=== PATIENT | male | born 1955 | race Caucasian/White ===

== ENCOUNTER 2019-05-22 23:38 | Emergency (ER) | payer OTHER ==
--- OUTSIDE RECORDS SUMMARY | 2019-05-22 23:41 | XMS REPORT | Continuity of Care Document ---
:1955 Author Organization [facility] Care Team Providers Name Role Phone [facility] Unavailable Unavailable Problems Problem Status Onset Classification Date Comments Source Date Reported Quadriplegia, 03/20/2019 [facility] unspecified 8 1 YEAR FOLLOW Active [facility] UP- TETRAPLEGIA 8 YEARLY FOLLOW Active [facility] UP 7 SCI FU Active [facility] 6 F/U Active [facility] 5 EAVL REFER BY Active [facility] DR. 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, not elsewhere classified Orthostatic 03/20/2019 [facility] hypotension Colostomy Active Problem 03/20/2019 [facility] Neurogenic Resolved Problem 03/20/2019 [facility] bowel 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 imipramine 10 See Active [facility] mg oral Instructions, 017 tablet TAKE 1 TABLET BY MOUTH TWICE DAILY, # 60 tab, 2 Refill(s) Ibu 800 mg See Active [facility] oral tablet Instructions, 017 TAKE 1 TABLET BY MOUTH TWICE DAILY NEEDED, # 60 tab, 2 Refill(s), Pharmacy: [facility] midodrine 2.5 See No Longer [facility] mg oral Instructions, # Active 017 tablet 360 tab, Refill(s) 1, TAKE 2 TABLETS BY MOUTH TWICE DAILY, Pharmacy: [facility] oxybutynin 15 See No Longer [facility] mg oral Instructions, # Active 017 tablet, 180 tab, extended Refill(s) 1, release TAKE 1 TABLET BY MOUTH TWICE DAILY, Pharmacy: [facility] Ibu 800 mg See No Longer [facility] oral tablet Instructions, # Active 017 60 tab, Refill(s) 2, TAKE 1 TABLET BY MOUTH TWICE DAILY NEEDED, Pharmacy: [facility] imipramine 10 See No Longer [facility] mg oral Instructions, # Active 017 tablet 60 tab, Refill(s) 2, TAKE 1 TABLET BY MOUTH TWICE DAILY, Pharmacy: [facility] Ibuprofen 800 See Active [facility] MG Oral Instructions, 015 Tablet [Ibu] PRN Pain Score 4-6, Take 1 tablet by mouth twice a day, # 90 tab, 3 Refill(s), [facility] Inst[facility]: Take 1 tablet by mouth twice a day midodrine 2.5 5 mg=2 tab, PO, Active [facility] mg oral BID, # 360 tab, 015 tablet 3 Refill(s), Pharmacy: [facility] imipramine 10 See Active [facility] mg oral Instructions, 015 tablet Take 1 tablet by mouth twice a day, # 180 tab, 3 Refill(s), [facility] Instructions: Take 1 tablet by mouth twice a day oxybutynin 15 15 mg=1 tab, PO, Active [facility] mg oral BID, # 180 tab, 015 tablet, 3 Refill(s), extended Pharmacy: release [facility] oxybutynin 15 15 mg=1 tab, PO, Inactive [facility] mg oral BID, 0 Refill(s) 015 tablet, extended release 24 HR 15 mg=1 tab, PO, Active [facility] Oxybutynin Daily, # 90 tab, 014 chloride 15 0 Refill(s) MG Extended Release Tablet [Ditropan] imipramine 10 =10 mg, PO, BID, Active [facility] mg oral 0 Refill(s) 014 tablet ibuprofen 800 800 mg=1 tab, No Longer [facility] mg oral PO, BID, # 60 Active 014 tablet tab, 11 Refill(s), Pharmacy: [facility] midodrine 2.5 5 mg=2 tab, PO, No Longer [facility] mg oral BID, # 120 tab, Active 014 tablet 10 Refill(s), Pharmacy: [facility] Omnipaque 300 100 mL, Route: MISC Active Bertini [facility] MISC, Drug Form: 013 SOLN, ONCE, Start date: 06/09/13 16:48:00, Stop date: 06/09/13 16:48:00 Milk of Bedtime, Active [facility] Magnesia Substitution 013 Allowed, Maintenance Allergies, Adverse Reactions, Alerts Substance Category Reaction Severity Reaction Status Date Comments Source type Reported No Known Assertion Drug [facility] Medication allergy Allergies Immunizations No Data Provided for This Section Results Order Name Results Value Reference Date Interpretation Comments Source Range CHEM PANEL eGFR 93 06/13/ <sup>1</sup>Re [facility] 2013 sult Comment: The eGFR is calculated using the CKD-EPI formula. In most young, healthy individuals the eGFR will be >90 mL/min/1.73m2. The eGFR declines with age. An eGFR of 60-89 may be normal in some populations, particularly the elderly, for whom the CKD-EPI formula has not been extensively validated. Use of the eGFR is not recommended in the following populations:&l t;br/>
Ind ividuals with unstable creatinine concentrations , including patients and those with serious co-morbid conditions.

Patient s with extremes in muscle mass or diet.

The data above are obtained from the National Kidney Disease Education Program (NKDEP) which additionally recommends that when the eGFR is used in patients with extremes of body mass index for purposes of drug dosing, the eGFR should be multiplied by the estimated BMI. CHEM PANEL Creatinine 0.9 0.5 - 1.4 06/13/ [facility] Lvl 2014 SPECIAL PSA 1.98 0.00 - 4.00 06/13/ <sup>2</sup>In [facility] CHEMISTRY 2014 terpretive Data: 0-4 ng/ml is clinically accepted reference range from the
[employer] in 1997 for Total PSA.

A PSA value in the range of 0.1 to 0.6 ng/mL is indeterminate< br/>if being used as an indicator of recurrent or residual disease. Pathology Reports No Data Provided for This Section Diagnostic Reports Report Value Date Source Retroperitoneal Complete US EXAM: US RENAL 05/05/2013 [facility] DATE: 05/05/2013 at 1047 hours. INDICATION: Neurogenic bladder. ADDITIONAL INFORMATION: Last catheterization at 0915 hours. COMPARISON: CT dated 08/14/2010 at 0801 hours. TECHNIQUE: Multiplanar grayscale and color Doppler ultrasound images of the kidneys and urinary bladder were obtained. FINDINGS: Kidneys are normal in shape and position without masses, hydronephrosis or cortical thinning. Right kidney is 10.2 x 4.7 x 4.6 cm and left is 11.7 x 5.8 x 5.7 cm. Renal echogenicity is normal. No avril l calculi or echogenic focus noted. Left-sided renal cysts are again identified. The largest ones measure 2.9 x 2.5 x 2.4 cm in the superior pole and 2.0 x 1.8 x 1.8 cm in the mid left kidney anteriorly . Both appears simple. Other smaller lesions evident on prior CT are not seen. Urinary bladder wall thickening is in keeping with history of neurogenic bladder and incomplete distension. No bladder calculi are identified. IMPRESSION: 1. Simple left renal cysts (Bosniak 1). 2. Uncomplicated neurogenic bladder. No bladder calculi. Interpreted by Francisco Kwon MD. Hip min 2 views EXAM: XR RIGHT HIP 2 VIEWS AND AP PELVIS 05/05/2013 [facility] DATE: 2013-05-05 1039 hours INDICATION: Hip pain COMPARISON: None available. TECHNIQUE: AP and frogleg lateral radiographs of the right hip and a single AP radiograph of the pelvis FINDINGS: A chronic displaced right femoral neck fracture is present, with proximal distraction of the right femoral segment. The femoral head remnant remains contained within the acetabulum. Large foci of heterotopic ossification are identified surrounding the greater trochanters bilaterally, right greater than left, and surrounding the ischial tuberosities bilaterally. Bridging osteophyte formation is identified at L4-L5. An ostomy overlies the left lower quadrant. IMPRESSION: 1. Chronic right femoral neck fracture with superior distraction of the right femoral shaft. 2. Heterotopic ossification surrounding the bilateral hips and ischial tuberosities. Consultation Notes No Data Provided for This Section Discharge Summaries No Data Provided for This Section History and Physicals No Data Provided for This Section Vital Signs Vital Sign Value Date Comments Source Weight 50.455 08/31/2018 [facility] BMI Calculated 15.51 08/31/2018 [facility] Height 180.34 cm 08/31/2018 [facility] BMI Calculated 24.04 09/01/2017 [facility] Weight 78.182 09/01/2017 [facility] Height 180.34 cm 09/01/2017 [facility] Respitory Rate 18 09/01/2017 [facility] Heart Rate 70 09/01/2017 [facility] Temperature Oral (F) 98.2 F 09/01/2017 [facility] Systolic (mm Hg) 113 09/01/2017 [facility] Diastolic (mm Hg) 73 09/01/2017 [facility] Weight 78.636 03/29/2016 [facility] BMI Calculated 24.18 03/29/2016 [facility] Height 180.34 cm 03/29/2016 [facility] Systolic (mm Hg) 110 03/29/2016 [facility] Diastolic (mm Hg) 69 03/29/2016 [facility] Heart Rate 65 03/29/2016 [facility] Respitory Rate 20 03/29/2016 [facility] Temperature Oral (F) 98.3 F 04/26/2015 [facility] Respitory Rate 20 04/26/2015 [facility] Heart Rate 71 04/26/2015 [facility] Systolic (mm Hg) 103 04/26/2015 [facility] Diastolic (mm Hg) 63 04/26/2015 [facility] BMI Calculated 23.76 03/21/2015 [facility] Heart Rate 64 03/21/2015 [facility] Systolic (mm Hg) 98 03/21/2015 [facility] Diastolic (mm Hg) 64 03/21/2015 [facility] Weight 77.273 03/21/2015 [facility] Height 180.34 cm 03/21/2015 [facility] Weight 77.273 06/13/2014 [facility] BMI Calculated 23.76 06/13/2014 [facility] Height 180.34 cm 06/13/2014 [facility] Systolic (mm Hg) 95 06/13/2014 [facility] Respitory Rate 20 06/13/2014 [facility] Heart Rate 75 06/13/2014 [facility] Diastolic (mm Hg) 58 06/13/2014 [facility] Diastolic (mm Hg) 72 06/09/2013 [facility] Systolic (mm Hg) 115 06/09/2013 [facility] Respitory Rate 18 06/09/2013 [facility] Temperature Oral (F) 98.5 F 06/09/2013 [facility] Heart Rate 57 06/09/2013 [facility] Height 180.34 cm 06/09/2013 [facility] Weight 72.727 06/09/2013 [facility] Height 180.34 cm 06/02/2013 [facility] Weight 72.727 06/02/2013 [facility] Diastolic (mm Hg) 60 06/02/2013 [facility] Heart Rate 62 06/02/2013 [facility] Respitory Rate 16 06/02/2013 [facility] Systolic (mm Hg) 113 06/02/2013 [facility] Respitory Rate 16 05/05/2013 [facility] Diastolic (mm Hg) 61 05/05/2013 [facility] Systolic (mm Hg) 92 05/05/2013 [facility] Heart Rate 75 05/05/2013 [facility] Heart Rate 62 03/22/2013 [facility] Respitory Rate 18 03/22/2013 [facility] Systolic (mm Hg) 89 03/22/2013 [facility] Diastolic (mm Hg) 59 03/22/2013 [facility] Height 180.34 cm 03/22/2013 [facility] Weight 73.182 03/22/2013 [facility] Encounters Location Location Encounter Encounter Reason Attending ADM DC Status Source Details Type Number For Visit Provider Date Date Outpatient [id number] F/U RANDALL 03/22 Active [facility] Outpatient [id number] CORA LILIAM 05/05 Active [facility] [id number] JAREDTARA [place] 06/02 Active [facility] Outpatient [id number] NEUROGENI LILIAM 06/09 Active [facility] C BLADDER [facility] Outpatient [id number] Liliam 06/13 06/14 [facility] [place] [facility] Out[facility] [id number] Suresh 03/21 03/22 [facility] /2014 [facility] Outpatient [id number] [place] 04/26 04/27 [facility] /2014 [facility] Outpatient [id number] Suresh 03/29 03/30 [facility] /2015 [facility] Outpatient [id number] Suresh 09/01 09/02 [facility] /2016 [facility] TR Spinal Outpatient [id number] [facility] 08/31 09/01 [facility] /2017 [facility] ([facility] Procedures Procedure Code Date Perfomer Comments Source Video urodynamic [id number] 06/09/2013 [facility] study Video urodynamic [id number] 06/09/2013 [facility] study Colostomy [facility] Skin flap operation [id number] 1 1987 both [facility] <sup>1</sup> ischiums, 2002 right ischium Tonsillectomy 340052720 2at 16years of [facility] <sup>2</sup> age Colostomy [id number] [facility] Skin flap [id number] 1988 both [facility] operation<sup>1</garcia ischiums, 2002 p> right ischium Tonsillectomy<sup>2 251850170 at 16years of [facility] </sup> age Assessment and Plan Assessment and Plan Date Source Extracted from:Title: GI 04/27/2015 [facility] Author: Rashaad Jessica MD Date: 04/26/15 Progress Daily [facility] Completed: Friday, APR 26, 2015, 16:30 by Rashaad Jessica MD RM: - , TR OPCR LILIAM HOOK 59y (: 1955) [facility]: [id number] Attending: Rashaad Jessica MD Service: Gastroenterology Service Reason for Admission: EAVL REFER BY DR. HARRIS Working DRG: None Documented Code status: None Specified=FULL CODE Current diet: Isolation: None Documented Allergies: NKDA SUBJECTIVE for colonoscopy was to have 2012 has colostomy OBJECTIVEWheelchair full upper ext movement colostomy RRR Lungs ASSESSMENT and EXAM for colon PLAN and TREATMENT colonoscopy per ostomy and flex Prep DIAGNOSES and PROBLEMS Ready for Discharge (Yes/No)? Rod still necessary (Yes/No): Line still necessary (Yes/No): (no lab data in past 24 hours) Vitals Tmp(F) Pulse BP RR SpO2 FIO2 04/26 16:14 98.3 71 103/63 20 --- --- 24 Hr Tmax: 98.3F (36.83c) at 04/26 16:14 Vital Signs are the last 5 in the past 48 hours. Date Wt(kg) Wt(lb) Ht(cm) Ht(in) Method (no weights recorded) I&O Record In Out Bal 24hr Tot 0 0 0 24hr Tot 0 0 0 Medications (0) Active Scheduled Meds: None Unscheduled Meds: None PRN Meds: None One Time Meds: None Continuous Infusions: None Plan of Care No Data Provided for This Section Social History Social History Date Source Social History TypeResponse 08/31/2018 [facility] Smoking Status Current some day smoker; Type: Cigarettes; Ready to change: No; Concerns about tobacco use in household: No; Exposure to Tobacco Smoke None; Cigarette Smoking Last 365 Days Yes; Reg Smoking Cessation Co unseling No; Other Tobacco Frequency smokes twice per day. last smoking was today; entered on: 08/31/18 Family History No Data Provided for This Section Advance Directives No Data Provided for This Section Functional Status No Data Provided for This Section
--- OUTSIDE RECORDS SUMMARY | 2019-05-22 23:41 | XMS REPORT | CCD ---
:1955 Author Organization [facility] Care Team Providers Name Role Phone Norman Longtyler Hamm Referring Provider Allergies, Adverse Reactions, Alerts Substance Reaction Status NKDA Active Problem List Condition Effective Dates Status Colostomy Active Neurogenic bladder Active SCI - Spinal cord injury Active Vital Signs Most recent to oldest [Reference Range]: 1 Height 180.34 cm (03/22/2013 13:25:00) Systolic Blood Pressure [90-140 mmHg] 89 mmHg *LOW* (03/22/2013 13:25:00) Diastolic Blood Pressure [60-90 mmHg] 59 mmHg *LOW* (03/22/2013 13:25:00) Respiratory Rate [14-20 BRMIN] 18 BRMIN (03/22/2013 13:25:00) Peripheral Pulse Rate [60-100 bpm] 62 bpm (03/22/2013 13:25:00) Weight 73.182 kg (03/22/2013 13:25:00) Procedures Procedures Date Related Diagnosis Skin flap operation 1 Tonsillectomy 2 1 1987 both ischiums, 2001 right [id number] 16years of age
--- OUTSIDE RECORDS SUMMARY | 2019-05-22 23:41 | XMS REPORT | CCD ---
:1955 Author Organization [facility] Team Providers Name Role Phone Liliam Kwok Jr Referring Provider Allergies, Adverse Reactions, Alerts Substance Reaction Status NKDA Active Problem List Condition Effective Dates Status Colostomy Active Neurogenic bladder Active SCI - Spinal cord injury Active Medications Medication Instructions Start Date End Date Status Milk of Magnesia Bedtime, Substitution Allowed, 05/05/2013 Ordered Maintenance Vital Signs Most recent to oldest [Reference Range]: 1 Systolic Blood Pressure [90-140 mmHg] 92 mmHg (05/05/2013 11:58:00) Diastolic Blood Pressure [60-90 mmHg] 61 mmHg (05/05/2013 11:58:00) Respiratory Rate [14-20 BRMIN] 16 BRMIN (05/05/2013 11:58:00) Peripheral Pulse Rate [60-100 bpm] 75 bpm (05/05/2013 11:58:00)
--- OUTSIDE RECORDS SUMMARY | 2019-05-22 23:41 | XMS REPORT | CCD ---
:1955 Author Organization [facility] Team Providers Name Role Phone AdarshLucas fajardo Jr Referring Provider Allergies, Adverse Reactions, Alerts Substance Reaction Status NKDA Active Problem List Condition Effective Dates Status Colostomy Active Neurogenic bladder1 02/17/1985 Active SCI - Spinal cord injury Active 1ICP Q 4-6 HR( PER SENSATION) Medications Medication Instructions Start Date End Date Status Omnipaque 300 100 mL, Route: MISC, Drug Form: SOLN, 06/09/2013 06/09/2013 Ordered ONCE, Start date: 06/09/13 16:48:00, Stop date: 06/09/13 16:48:00 Vital Signs Most recent to oldest [Reference Range]: 1 Height 180.34 cm (06/09/2013 14:13:00) Temperature Oral [96.4-99.1 DegF] 98.5 DegF (06/09/2013 14:13:00) Systolic Blood Pressure [90-140 mmHg] 115 mmHg (06/09/2013 14:13:00) Diastolic Blood Pressure [60-90 mmHg] 72 mmHg (06/09/2013 14:13:00) Respiratory Rate [14-20 BRMIN] 18 BRMIN (06/09/2013 14:13:00) Peripheral Pulse Rate [60-100 bpm] 57 bpm *LOW* (06/09/2013 14:13:00) Weight 72.727 kg (06/09/2013 14:13:00) Procedures Procedures Date Related Diagnosis Colostomy Video urodynamic study 06/09/2013 00:00:00
--- OUTSIDE RECORDS SUMMARY | 2019-05-22 23:41 | XMS REPORT | Summary of Care ---
:1955 Author Organization [facility] Address [address] [place] [id number] Encounter [facility] Keke_enrique(FIN) [id number] Date(s): 08/31/18 - 08/31/[address] [address]- [phone] Encounter Diagnosis Quadriplegia, unspecified (Final) - 09/07/18 Neurogenic bowel, not elsewhere classified (Final) - Reflex neuropathic bladder, not elsewhere classified (Final) - Orthostatic hypotension (Final) - Discharge Disposition: Home or Self Care Attending Physician: Suresh Renteria MD Referring Physician: Suresh Renteria MD Vital Signs Most recent to oldest [Reference Range]: 1 Height 180.34 cm (08/31/18 9:05 AM) Weight 50.455 kg (08/31/18 9:05 AM) Body Mass Index 15.51 m2 (08/31/18 9:05 AM) Problem List Condition Effective Dates Status Health Status Informant Colostomy(Confirmed) Active Neurogenic bladder(Confirmed)1 02/16/85 Active Neurogenic bowel(Confirmed) Resolved SCI - Spinal cord injury(Confirmed) Active 1ICP Q 4-6 HR( PER SENSATION) Allergies, Adverse Reactions, Alerts No Known Medication Allergies Medications No Known Medications Results No data available for this section Immunizations No data available for this section Procedures Procedure Date Related Diagnosis Body Site Status Video urodynamic study 06/09/13 Completed Colostomy Completed Skin flap operation1 Completed Tonsillectomy2 Completed 1987 both ischiums, 2001 right [id number] 16years of age Social History Social History Type Response Smoking Status Current some day smoker; Type: Cigarettes; Ready to change: No ; Concerns about tobacco use in household: No; Exposure to Tobacco Smoke None; Cigarette Smoking Last 365 Days Yes; Reg Smoking Cessation Counseling No; 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 last smoking was today; entered on: 08/31/18 Assessment and Plan No data available for this section
--- OUTSIDE RECORDS SUMMARY | 2019-05-22 23:41 | XMS REPORT | Summary of Care ---
:1955 Author Organization [facility] Address [address] [place] [phone] Encounter [facility] Keke_enrique(FIN) [id number] Date(s): 09/01/17 - 09/01/[address] Discharge Disposition: Home or Self Care Attending Physician: Suresh Renteria MD Referring Physician: Suresh Renteria MD Vital Signs Most recent to oldest [Reference Range]: 1 Height 180.34 cm (09/01/17 8:13 AM) Temperature Oral [96.4-99.1 DegF] 98.2 DegF (09/01/17 8:13 AM) Blood Pressure [90-140/60-90 mmHg] 113/73 mmHg (09/01/17 8:13 AM) Respiratory Rate [14-20 BRMIN] 18 BRMIN (09/01/17 8:13 AM) Peripheral Pulse Rate [60-100 bpm] 70 bpm (09/01/17 8:13 AM) Weight 78.182 kg (09/01/17 8:13 AM) Body Mass Index 24.04 m2 (09/01/17 8:13 AM) Problem List Condition Effective Dates Status Health Status Informant Colostomy(Confirmed) Active Neurogenic bladder(Confirmed)1 02/16/85 Active Neurogenic bowel(Confirmed) Resolved SCI - Spinal cord injury(Confirmed) Active 1ICP Q 4-6 HR( PER SENSATION) Allergies, Adverse Reactions, Alerts Substance Reaction Severity Status NKDA Active Medications Ibu 800 mg oral tablet See Instructions, TAKE 1 TABLET BY MOUTH TWICE DAILY NEEDED, # 60 tab, 2 Refill(s), Pharmacy: [facility] Start Date: 09/01/17 Status: OrderedIbu 800 mg oral tablet See Instructions, # 60 tab, Refill(s) 2, TAKE 1 TABLET BY MOUTH TWICE DAILY NEEDED, Pharmacy: [facility] Start Date: 04/08/17 Stop Date: 09/01/17 Status: Discontinuedimipramine 10 mg oral tablet See Instructions, TAKE 1 TABLET BY MOUTH TWICE DAILY, # 60 tab, 2 Refill(s) Start Date: 09/01/17 Status: Orderedimipramine 10 mg oral tablet See Instructions, # 60 tab, Refill(s) 2, TAKE 1 TABLET BY MOUTH TWICE DAILY, Pharmacy: [facility] Start Date: 04/08/17 Stop Date: 07/22/17 Status: Completedmidodrine 2.5 mg oral tablet See Instructions, TAKE 2 TABLETS BY MOUTH TWICE DAILY, # 360 tab, 3 Refill(s), Pharmacy: [facility] Start Date: 09/01/17 Status: Orderedmidodrine 2.5 mg oral tablet See Instructions, # 360 tab, Refill(s) 1, TAKE 2 TABLETS BY MOUTH TWICE DAILY, Pharmacy: [facility] Start Date: 04/30/17 Stop Date: 09/01/17 Status: Discontinuedoxybutynin 15 mg oral tablet, extended release See Instructions, TAKE 1 TABLET BY MOUTH TWICE DAILY, # 180 tab, 3 Refill(s), Pharmacy: [facility] Start Date: 09/01/17 Status: Orderedoxybutynin 15 mg oral tablet, extended release See Instructions, # 180 tab, Refill(s) 1, TAKE 1 TABLET BY MOUTH TWICE DAILY, Pharmacy: [facility] Start Date: 04/30/17 Stop Date: 09/01/17 Status: Discontinued Results No data available for this section Immunizations No data available for this section Procedures Procedure Date Related Diagnosis Body Site Video urodynamic study 06/09/13 Colostomy Skin flap operation1 Tonsillectomy2 1 1987 both ischiums, 2001 right [id number] 16years of age Social History Social History Type Response Smoking Status Current some day smoker; Type: Cigarettes; Exposure to Tobacco Smoke None; Other Tobacco Frequency smokes twice per day. last smoking was today; Cigarette Smoking Last 365 Days Yes; Reg Smoking Cessation Counseling No Assessment and Plan No data available for this section
--- OUTSIDE RECORDS SUMMARY | 2019-05-22 23:42 | XMS REPORT | Summary of Care ---
:1955 Author Encounter MIKE Mckeon(VALERIE) [id number] Date(s): 03/21/15 - 03/21/[address] Discharge Disposition: Home Physician Attending: Suresh Renteria MD Physician_Referring: Suresh Renteria MD Vital Signs Most recent to oldest [Reference Range]: 1 Height 180.34 cm (03/21/15 1:09 PM) Blood Pressure [90-140/60-90 mmHg] 98/64 mmHg (03/21/15 1:09 PM) Peripheral Pulse Rate [60-100 bpm] 64 bpm (03/21/15 1:09 PM) Weight 77.273 kg (03/21/15 1:09 PM) Body Mass Index 23.76 m2 (03/21/15 1:09 PM) Problem List Condition Effective Dates Status Health Status Informant Colostomy(Confirmed) Active Neurogenic bladder(Confirmed)1 02/17/85 Active SCI - Spinal cord injury(Confirmed) Active 1ICP Q 4-6 HR( PER SENSATION) Allergies, Adverse Reactions, Alerts Substance Reaction Severity Status NKDA Active Medications Ibu 800 mg oral tablet See Instructions, PRN Pain Score 4-6, Take 1 tablet by mouth twice a day, # 90 tab, 3 Refill(s), Pharmacy: [facility] Special Instructions: Take 1 tablet by mouth twice a day Start Date: 03/21/15 Status: Orderedibuprofen 800 mg oral tablet 800 mg=1 tab, PO, BID, # 60 tab, 11 Refill(s), Pharmacy: [facility] Start Date: 04/27/14 Stop Date: 05/30/14 Status: Completedimipramine 10 mg oral tablet See Instructions, Take 1 tablet by mouth twice a day, # 180 tab, 3 Refill(s), Pharmacy: [facility] Special Instructions: Take 1 tablet by mouth twice a day Start Date: 03/21/15 Status: Orderedmidodrine 2.5 mg oral tablet 5 mg=2 tab, PO, BID, # 120 tab, 10 Refill(s), Pharmacy: [facility] Start Date: 04/25/14 Stop Date: 05/27/14 Status: Completedmidodrine 2.5 mg oral tablet 5 mg=2 tab, PO, BID, # 360 tab, 3 Refill(s), Pharmacy: [facility] Start Date: 03/21/15 Status: Orderedoxybutynin 15 mg oral tablet, extended release 15 mg=1 tab, PO, BID, 0 Refill(s) Start Date: 03/21/15 Stop Date: 03/21/15 Status: Discontinuedoxybutynin 15 mg oral tablet, extended release 15 mg=1 tab, PO, BID, # 180 tab, 3 Refill(s), Pharmacy: [facility] Start Date: 03/21/15 Status: Ordered Results No data available for this section Immunizations No data available for this section Procedures Procedure Date Related Diagnosis Body Site Video urodynamic study 06/09/13 Colostomy Skin flap operation1 Tonsillectomy2 1 1987 both ischiums, 2001 right [id number] 16years of age Social History Social History Type Response Smoking Status Current some day smoker; Type: Cigarettes; Exposure to Tobacco Smoke None; Other Tobacco Frequency smokes twice per day. last smoking was today; Cigarette Smoking Last 365 Days Yes; Reg Smoking Cessation Counseling No Assessment and Plan No data available for this section
--- OUTSIDE RECORDS SUMMARY | 2019-05-22 23:42 | XMS REPORT | Summary of Care ---
:1955 Author Encounter MIKE Mckeon(VALERIE) [id number] Date(s): 06/13/14 - 06/13/[address] [phone] [facility] Discharge Disposition: Home Physician Attending: Liliam Santamaria MD Physician_Referring: Liliam Santamaria MD Reason for Visit NEUROGENIC BLADDER Vital Signs Most recent to oldest [Reference Range]: 1 Height 180.34 cm (06/13/14 10:07 AM) Systolic Blood Pressure [90-140 mmHg] 95 mmHg (06/13/14 10:07 AM) Diastolic Blood Pressure [60-90 mmHg] 58 mmHg *LOW* (06/13/14 10:07 AM) Respiratory Rate [14-20 BRMIN] 20 BRMIN (06/13/14 10:07 AM) Peripheral Pulse Rate [60-100 bpm] 75 bpm (06/13/14 10:07 AM) Weight 77.273 kg (06/13/14 10:07 AM) Body Mass Index 23.76 m2 (06/13/14 10:07 AM) Problem List Condition Effective Dates Status Health Status Informant Colostomy(Confirmed) Active Neurogenic bladder(Confirmed)1 02/17/85 Active SCI - Spinal cord injury(Confirmed) Active 1ICP Q 4-6 HR( PER SENSATION) Allergies, Adverse Reactions, Alerts Substance Reaction Severity Status NKDA Active Medications Ditropan XL 15 mg oral tablet, extended release 15 mg=1 tab, PO, Daily, # 90 tab, 0 Refill(s) Start Date: 06/13/14 Status: Orderedimipramine 10 mg oral tablet =10 mg, PO, BID, 0 Refill(s) Start Date: 06/13/14 Status: Ordered Results CHEM PANEL Most recent to oldest [Reference Range]: 1 Creatinine Lvl [0.5-1.4 mg/dL] 0.9 mg/dL (06/13/14 10:40 AM) eGFR 93 mL/min/1.73m2 1 *NA* (06/13/14 10:40 AM) 1Result Comment: The eGFR is calculated using the CKD-EPI formula. In most young , healthy individualsthe eGFR will be >90 mL/min/1.73m2. The eGFR declines with age. An eGFR of 60-89 may be normal in some populations, particularly the elderly, for whom the CKD-EPI formula has not been extensively validated. Use of the eGFR is not recommended in the following populations: Individuals with unstable creatinine concentrations, including patients and those with serious co-morbid conditions. Patients with extremes in muscle mass or diet. The data above are obtained from the National Kidney Disease Education Program ( NKDEP) which additionally recommends that when the eGFR is used in patients with extremes of body mass index for purposesof drug dosing, the eGFR should be multiplied by the estimated BMI.SPECIAL CHEMISTRY Most recent to oldest [Reference Range]: 1 PSA [0.00-4.00 ng/mL] 1.98 ng/mL 2 (06/13/14 10:40 AM) 2Interpretive Data: 0-4 ng/ml is clinically accepted reference range from the [place] [employer] in 1997 for Total PSA. A PSA value in the range of 0.1 to 0.6 ng/mL is indeterminate if being used as an indicator of recurrent or residual disease. Medications Administered During Your Visit No data available for this section Immunizations No data available for this section Social History Social History Type Response Smoking Status Never smoker, Exposure to Tobacco Smoke None, Cigarette Smoking Last 365 Days No, Reg Smoking Cessation Counseling No
--- OUTSIDE RECORDS SUMMARY | 2019-05-22 23:42 | XMS REPORT | Summary of Care ---
:1955 Author Encounter HQ Linda(VALERIE) [id number] Date(s): 04/26/15 - 04/26/[address] [phone] Discharge Disposition: Home Physician Attending: Rashaad Jessica MD Physician_Referring: Rashaad Jessica MD Vital Signs Most recent to oldest [Reference Range]: 1 Temperature Oral [96.4-99.1 DegF] 98.3 DegF (04/26/15 4:14 PM) Blood Pressure [90-140/60-90 mmHg] 103/63 mmHg (04/26/15 4:14 PM) Respiratory Rate [14-20 BRMIN] 20 BRMIN (04/26/15 4:14 PM) Peripheral Pulse Rate [60-100 bpm] 71 bpm (04/26/15 4:14 PM) Problem List Condition Effective Dates Status Health Status Informant Colostomy(Confirmed) Active Neurogenic bladder(Confirmed)1 02/17/85 Active SCI - Spinal cord injury(Confirmed) Active 1ICP Q 4-6 HR( PER SENSATION) Allergies, Adverse Reactions, Alerts Substance Reaction Severity Status NKDA Active Medications No data available for this section Results No data available for this section Immunizations No data available for this section Procedures Procedure Date Related Diagnosis Body Site Video urodynamic study 06/09/13 Colostomy Skin flap operation1 Tonsillectomy2 1 1987 both ischiums, 2001 right [id number] 16years of age Social History Social History Type Response Smoking Status Current some day smoker; Type: Cigarettes; Exposure to Tobacco Smoke None; Other Tobacco Frequency smokes twice per day. last smoking was today; Cigarette Smoking Last 365 Days Yes; Reg Smoking Cessation Counseling No Assessment and Plan Extracted from: Title: GI Author: Rashaad Jessica MD Date: 04/26/15 Progress Daily [facility] Completed: Apr, 16:30 by Rashaad Jessica MD RM: - , TR OPCR LILIAM HOOK 59y (: 1955) M Attending: Rashaad Jessica MD Service: Gastroenterology Service Reason for Admission: EAVL REFER BY DR. HARRIS Working DRG: None Documented Code status: None Specified=FULL CODE Current diet: Isolation: None Documented Allergies: NKDA SUBJECTIVE for colonoscopy was to have 2013 has colostomy OBJECTIVEWheelchair full upper ext movement colostomy RRR Lungs ASSESSMENT & EXAM for colon PLAN & TREATMENT colonoscopy per ostomy and flex Prep DIAGNOSES & PROBLEMS Ready for Discharge (Yes/No)? Rod still [...]
--- OUTSIDE RECORDS SUMMARY | 2019-05-22 23:42 | XMS REPORT | CCD ---
:1955 Author Organization [facility] Care Team Providers Name Role Phone Rashaad Jessica Parviz Referring Provider Allergies, Adverse Reactions, Alerts Substance Reaction Status NKDA Active Problem List Condition Effective Dates Status Colostomy Active Neurogenic bladder Active SCI - Spinal cord injury Active Vital Signs Most recent to oldest [Reference Range]: 1 Height 180.34 cm (06/02/2013 15:27:00) Systolic Blood Pressure [90-140 mmHg] 113 mmHg (06/02/2013 15:27:00) Diastolic Blood Pressure [60-90 mmHg] 60 mmHg (06/02/2013 15:27:00) Respiratory Rate [14-20 BRMIN] 16 BRMIN (06/02/2013 15:27:00) Peripheral Pulse Rate [60-100 bpm] 62 bpm (06/02/2013 15:27:00) Weight 72.727 kg (06/02/2013 15:27:00)
--- OUTSIDE RECORDS SUMMARY | 2019-05-22 23:42 | XMS REPORT | Summary of Care ---
:1955 Author Organization [facility] Address [address] [place], [place] [id number] Encounter HQ Keke_enrique(FIN) [id number] Date(s): 03/29/16 - 03/29/[address] [phone] Discharge Disposition: Home Attending Physician: Suresh Renteria MD Referring Physician: Suresh Renteria MD Vital Signs Most recent to oldest [Reference Range]: 1 Height 180.34 cm (03/29/16 10:19 AM) Blood Pressure [90-140/60-90 mmHg] 110/69 mmHg (03/29/16 10:19 AM) Respiratory Rate [14-20 BRMIN] 20 BRMIN (03/29/16 10:19 AM) Peripheral Pulse Rate [60-100 bpm] 65 bpm (03/29/16 10:19 AM) Weight 78.636 kg (03/29/16 10:19 AM) Body Mass Index 24.18 m2 (03/29/16 10:19 AM) Problem List Condition Effective Dates Status Health Status Informant Colostomy(Confirmed) Active Neurogenic bladder(Confirmed)1 02/16/85 Active SCI - Spinal cord injury(Confirmed) Active 1ICP Q 4-6 HR( PER SENSATION) Allergies, Adverse Reactions, Alerts Substance Reaction Severity Status NKDA Active Medications No Known Medications Results No data available for this section Immunizations No data available for this section Procedures Procedure Date Related Diagnosis Body Site Video urodynamic study 06/09/13 Colostomy Skin flap operation1 Tonsillectomy2 1 1987 both ischiums, 2001 right [id number] 16years of age Social History Social History Type Response Smoking Status Current some day smoker; Ready to change: No; Concerns about tobacco use in household: No; Exposure to Tobacco Smoke Patient smoke; Cigarette Smoking Last 365 Days No; Reg Smoking Cessation Counseling No Assessment and Plan No data available for this section
[2019-05-23 00:25] LABS: Basophils % 1.1 % (0-1.3); Eosinophils % 2.8 % (0-4.4); Hematocrit 45.1 % (39.6-49.0); Lymphocytes % 35.8 % (15.3-44.8); MPV 7.6 fL (7.6-11.3); Monocytes % 9.6 % (3.3-12.3); RBC Red Blood Cell Count 4.78 M/uL (4.33-5.43)
[2019-05-23 00:30] LABS: Protime INR 0.91
[2019-05-23 00:54] LABS: ALT/SGPT 27 U/L (12-78); AST/SGOT 14 U/L (15-37); Albumin 3.7 g/dL (3.4-5.0); Alkaline Phosphatase 96 U/L (45-117); BUN Blood Urea Nitrogen 25 mg/dL (7-18); Bicarbonate 26 mmol/L (21-32); Bilirubin Direct 0.1 mg/dL (0-0.2); Bilirubin Total 0.3 mg/dL (0.2-1.0); CKMB Creatine Kinase MB 1.2 ng/mL (0.3-3.6); Creatine Phosphokinase 81 U/L (39-308); Glucose Level 101 mg/dL (74-106); Protein, Total 6.6 g/dL (6.4-8.2); Sodium Level 143 mmol/L (136-145); Troponin (Emerg Dept Use Only) < 0.02 ng/mL (0.0-0.045)
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
[2019-05-23] MEDS ORDERED: ASPIRIN 325 MG TAB ONE (03:41)
--- NOTE | 2019-05-23 09:11 | EKG ---
Test Date: 2019-05-22 Test Time: 23:49:16 Appointment Specialist: MARIZOL MEASUREMENT RESULTS: Intervals: Rate: 52 MN: 160 QRSD: 92 QT: 428 QTc: 398 [place]: P: 55 MN: 160 QRS: -31 T: 48 INTERPRETIVE STATEMENTS: Sinus bradycardia Left axis deviation Abnormal ECG No previous ECG available for comparison Electronically Signed On 05-23-19 09:10:34 CDT by Jairon Wyatt
--- NOTE | 2019-05-23 12:53 | RAD REPORT ---
EXAM DESCRIPTION: RAD - Chest Single View - 05/23/2019 12:15 am CLINICAL HISTORY: . Chest pain. COMPARISON: No comparisons FINDINGS: Portable technique limits examination quality. The included lungs are grossly clear. The costophrenic angles are excluded from the projection. The h eart is mildly enlarged.
--- NOTE | 2019-05-24 11:14 | RAD REPORT ---
EXAM DESCRIPTION: LILIAM HOOK [id number] - Ct Stroke Brain Wo Cont ADDENDUM #1 Critical findings discussed with Dr. Rhoades. Electronically signed by: Kelsey Lambert MD 05/23/2019 12:45 AM CDT End of Addendum EXAM DESCRIPTION: Ct Stroke Brain Wo Cont CLINICAL HISTORY: 63 years Male WEAKNESS COMPARISON: None TECHNIQUE: Images were obtained in the axial, sagittal, and coronal planes. This exam was performed according to our departmental dose-optimization program which includes use of Automated Exposure Control, adjustment of the mA and/or kV according to patient size and/or use of i terative reconstruction technique. FINDINGS: Ventricular system appears normal. No abnormal areas of increased or decreased attenuation are seen involving the brain parenchyma. No e xtra-axial fluid collections noted. No evidence for skull fracture. Symmetric aeration mastoid air cells bilaterally. Unremarkable parana phil sinuses. IMPRESSION: No acute intracranial abnormality. No evidence for hemorrhage, mass lesion, or large acu te infarction. Electronically signed by: Kelsey Lambert MD 05/23/2019 12:22 AM CDT Due to temporary technical issues with the PACS/Fluency reporting system, reports are being signed by the in house radiologist as a courtesy to ensure prompt reporting. The interpreting radiologist is f ully responsible for the content of the report.
== END 2019-05-23 05:45 | disposition short-term general hospital (02) ==
LOC: ER 23:38
DX: I63.9 Cerebral infarction, unspecified (principal)
CPT/HCPCS: 36415; 70450; 71045; 80048; 80076; 82550; 82553; 82962; 84484; 85025; 85610; 85730; 93005; 99285